=== PATIENT | female | born 1960 | race African-American/Black ===

== ENCOUNTER 2017-04-10 23:50 | Emergency (ER) | payer BC ==
[2017-04-11 00:21] LABS: #Eosinphils 0.2 thou/uL (0.0-0.7); #Lymphocytes 2.5 thou/uL (1.20-3.40); #Monocytes 0.9 thou/uL (0.11-0.59); #Neutrophils 4.2 thou/uL (1.40-6.50); %Basophils 0.5 % (0.0-1.0); %Eosinophils 2.2 % (0.0-10.0); %Lymphocytes 31.8 % (21.0-51.0); %Monocytes 11.4 % (0.0-10.0); %Neutrophils 54.1 % (42.0-75.0); Hemoglobin 12.6 g/dL (12.0-16.0); Mean Corpuscular HGB CONC 32.6 g/dL (32.0-36.0); Mean Corpuscular Hemoglobin 31.5 pg (27.0-31.0); Mean Corpuscular Volume 96.7 fl (81.0-99.0); Mean Platelet Volume 6.8 fL (7.4-10.4); Platelet Count 216 thou/uL (130-400); RBC Distribution Width 12.5 % (11.5-14.5); Red Blood Cell (RBC) Count 3.99 mill/uL (4.20-5.40); White Blood Cell (WBC) Count 7.8 thou/uL (4.8-10.8)
[2017-04-11 00:42] LABS: ALT (SGPT) 10 U/L (8-55); AST (SGOT) 17 U/L (5-34); Albumin 3.3 g/dL (3.5-5.0); Alkaline Phosphatase 52 U/L (40-150); Anion Gap 11 mmol/L (10-20); BUN (Urea Nitrogen) 9 mg/dL (9.8-20.1); Bilirubin, Total 0.3 mg/dL (0.2-1.2); CK (CPK) 131 U/L (29-168); Calc. Creatinine Clearance 0 mL/min (70-130); Calcium 8.5 mg/dL (7.8-10.44); Carbon Dioxide 26 mmol/L (22-29); Chloride 108 mmol/L (98-107); Estimated GFR-MDRD Greater than 90; Globulin 2.6 g/dL (2.4-3.5); Glucose 96 mg/dL (70-105); Potassium 3.5 mmol/L (3.5-5.1); Protein, Total 5.9 g/dL (6.0-8.3); Sodium 141 mmol/L (136-145)
[2017-04-11 00:45] LABS: CKMB 0.9 ng/mL (0-6.6); Troponin I Less than 0.010 ng/mL (< 0.028)
[2017-04-11] MEDS ORDERED: Acetaminophen 500 MG TAB ONE (02:56)
--- NOTE | 2017-04-11 08:38 | RAD ---
PA AND LATERAL VIEWS OF CHEST: Date: 04/10/17 HISTORY: Cough. FINDINGS: The heart size is normal. The lungs are well expanded without focal areas of consolidation, pneumotho rax, or pleural effusions. There are degenerative changes in the spine. IMPRESSION: No radiographic evidence of acute cardiopulmonary process. POS: [facility]
== END 2017-04-11 03:43 | disposition home or self-care (01) ==
LOC: ERS 23:50
DX: B34.9 Viral infection, unspecified (principal); I10 Essential (primary) hypertension; Z87.891 Personal history of nicotine dependence; Z79.899 Other long term (current) drug therapy
CPT/HCPCS: 36415; 71046; 80053; 82553; 83880; 84484; 85025; 93005; 94640; J7620

== ENCOUNTER 2017-10-21 19:15 | Emergency (ER) | payer BC, SELFPAY ==
[2017-10-21 19:53] LABS: #Basophils 0.1 thou/uL (0.0-0.2); #Eosinphils 0.2 thou/uL (0.0-0.7); #Lymphocytes 3.6 thou/uL (1.20-3.40); #Monocytes 0.7 thou/uL (0.11-0.59); #Neutrophils 8.1 thou/uL (1.40-6.50); %Basophils 1.2 % (0.0-1.0); %Eosinophils 1.6 % (0.0-10.0); %Monocytes 5.4 % (0.0-10.0); %Neutrophils 63.8 % (42.0-75.0); Mean Corpuscular HGB CONC 33.2 g/dL (32.0-36.0); Mean Corpuscular Hemoglobin 31.9 pg (27.0-31.0); Mean Platelet Volume 7.3 fL (7.4-10.4); Platelet Count 232 thou/uL (130-400); RBC Distribution Width 12.8 % (11.5-14.5); Red Blood Cell (RBC) Count 4.38 mill/uL (4.20-5.40); White Blood Cell (WBC) Count 12.7 thou/uL (4.8-10.8)
--- NOTE | 2017-10-21 20:14 | RAD ---
PORTABLE AP CHEST X-RAY 10/21/17 HISTORY: Chest pain. COMPARISON: 04/11/17. FINDINGS: The cardiac silhouette and pulmonary vasculature are within normal limits. The lungs remain clear. Th ere has been no interval change from prior study. IMPRESSION: No acute cardiopulmonary process. POS: [facility]
[2017-10-21 20:15] LABS: ALT (SGPT) 15 U/L (8-55); AST (SGOT) 18 U/L (5-34); Albumin 3.8 g/dL (3.5-5.0); Alkaline Phosphatase 60 U/L (40-150); Anion Gap 14 mmol/L (10-20); BUN (Urea Nitrogen) 10 mg/dL (9.8-20.1); Bilirubin, Total 0.3 mg/dL (0.2-1.2); CK (CPK) 136 U/L (29-168); Calc. Creatinine Clearance 0 mL/min (70-130); Calcium 9.2 mg/dL (7.8-10.44); Carbon Dioxide 23 mmol/L (22-29); Chloride 104 mmol/L (98-107); Estimated GFR-MDRD Greater than 90; Globulin 2.7 g/dL (2.4-3.5); Glucose 126 mg/dL (70-105); Potassium 3.4 mmol/L (3.5-5.1); Protein, Total 6.5 g/dL (6.0-8.3); Sodium 138 mmol/L (136-145)
[2017-10-21 20:20] LABS: CKMB 2.2 ng/mL (0-6.6); Troponin I Less than 0.010 ng/mL (< 0.028)
--- NOTE | 2017-10-21 21:12 | RAD ---
THREE VIEWS LEFT SHOULDER 10/21/17 HISTORY: Left sided weakness, left shoulder pain. 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 There is mild left glenohumeral osteoarthropath y. No fracture or dislocation is seen. IMPRESSION: 1. No acute osseous abnormality left shoulder. 2. 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 POS: [facility]
== END 2017-10-21 21:25 | disposition home or self-care (01) ==
LOC: ERS 19:15
DX: M62.838 Other muscle spasm (principal); Z87.891 Personal history of nicotine dependence
CPT/HCPCS: 36415; 71045; 80053; 82553; 84484; 85025; 93005; 96374; J2270

== ENCOUNTER 2018-02-28 08:29 | Emergency (ER) | payer BC, SELFPAY ==
--- NOTE | 2018-02-28 09:59 | RAD ---
TWO VIEWS OF CHEST: DATE: 02/28/2018. COMPARISON: 04/11/2017. HISTORY: Cough, body aches, and congestion. FINDINGS: Lungs are clear. Heart and mediastinal contours are unremarkable. IMPRESSION: No acute findings. POS: [facility]
== END 2018-02-28 10:23 | disposition home or self-care (01) ==
LOC: ERS 08:29
DX: J06.9 Acute upper respiratory infection, unspecified (principal); I10 Essential (primary) hypertension; Z87.891 Personal history of nicotine dependence; Z79.899 Other long term (current) drug therapy
CPT/HCPCS: 71046; 87804; 93005

== ENCOUNTER 2018-05-06 10:11 | Emergency (ER) | payer BC | END 2018-05-06 11:43 | disposition home or self-care (01) | LOC: ERS 10:11 | DX: J20.9 Acute bronchitis, unspecified (principal); I10 Essential (primary) hypertension; Z87.891 Personal history of nicotine dependence | CPT/HCPCS: 87804; 99283 ==

== ENCOUNTER 2018-06-10 10:11 | Emergency (ER) | payer BC | END 2018-06-10 13:34 | disposition left against medical advice (07) | LOC: ERS 10:11 | DX: Z53.21 Procedure and treatment not carried out due to patient leaving prior to being seen by health care provider (principal) ==

== ENCOUNTER 2018-06-10 13:41 | Emergency (ER) | payer BC | END 2018-06-10 15:12 | disposition home or self-care (01) | LOC: ERS 13:41 | DX: J06.9 Acute upper respiratory infection, unspecified (principal); H65.92 Unspecified nonsuppurative otitis media, left ear; I10 Essential (primary) hypertension; Z87.891 Personal history of nicotine dependence; Z79.899 Other long term (current) drug therapy | CPT/HCPCS: 99282 ==

== ENCOUNTER 2018-06-14 14:44 | Emergency (ER) | payer BC | END 2018-06-14 16:00 | disposition home or self-care (01) | LOC: ERS 14:44 | DX: H69.82 Other specified disorders of Eustachian tube, left ear (principal); I10 Essential (primary) hypertension; Z87.891 Personal history of nicotine dependence; Z79.899 Other long term (current) drug therapy | CPT/HCPCS: 99283 ==

== ENCOUNTER 2018-09-09 18:21 | Emergency (ER) | payer BC | END 2018-09-09 19:00 | disposition home or self-care (01) | LOC: ERS 18:21 | DX: K04.7 Periapical abscess without sinus (principal); K02.9 Dental caries, unspecified; I10 Essential (primary) hypertension; Z87.891 Personal history of nicotine dependence | CPT/HCPCS: 99282 ==

== ENCOUNTER 2018-11-02 09:13 | Emergency (ER) | payer SELFPAY ==
[2018-11-02 09:46] LABS: #Basophils 0.1 thou/uL (0.0-0.2); #Eosinphils 0.3 thou/uL (0.0-0.7); #Lymphocytes 2.3 thou/uL (1.20-3.40); #Monocytes 0.6 thou/uL (0.11-0.59); #Neutrophils 4.9 thou/uL (1.40-6.50); %Basophils 1.4 % (0.0-1.0); %Eosinophils 3.1 % (0.0-10.0); %Lymphocytes 28.3 % (21.0-51.0); %Monocytes 6.9 % (0.0-10.0); %Neutrophils 60.3 % (42.0-75.0); Hemoglobin 13.4 g/dL (12.0-16.0); Mean Corpuscular HGB CONC 33.6 g/dL (32.0-36.0); Mean Corpuscular Hemoglobin 32.6 pg (27.0-31.0); Mean Corpuscular Volume 96.9 fL (78.0-98.0); Mean Platelet Volume 7.4 fL (7.4-10.4); Platelet Count 215 thou/uL (130-400); RBC Distribution Width 13.1 % (11.5-14.5); Red Blood Cell (RBC) Count 4.12 mill/uL (4.20-5.40); White Blood Cell (WBC) Count 8.1 thou/uL (4.8-10.8)
[2018-11-02 10:12] LABS: ALT (SGPT) 15 U/L (8-55); AST (SGOT) 18 U/L (5-34); Albumin 3.4 g/dL (3.5-5.0); Alkaline Phosphatase 54 U/L (40-150); Anion Gap 10 mmol/L (10-20); BUN (Urea Nitrogen) 12 mg/dL (9.8-20.1); Bilirubin, Total 0.5 mg/dL (0.2-1.2); CK (CPK) 98 U/L (29-168); Calc. Creatinine Clearance 0 mL/min (70-130); Calcium 8.7 mg/dL (7.8-10.44); Carbon Dioxide 25 mmol/L (22-29); Chloride 113 mmol/L (98-107); Estimated GFR-MDRD Greater than 90; Globulin 1.7 g/dL (2.4-3.5); Glucose 83 mg/dL (70-105); Potassium 3.9 mmol/L (3.5-5.1); Protein, Total 5.1 g/dL (6.0-8.3); Sodium 144 mmol/L (136-145)
--- NOTE | 2018-11-02 10:28 | RAD ---
2 VIEW CHEST: Date: 11/02/18 INDICATION: Hypertension. Headache. Dizziness. COMPARISON: 02/28/18. FINDINGS: There is linear stranding in the left lung base, appears to represent subsegmental atelectasis. No in filtrate or vascular congestion. Heart and mediastinum unremarkable. Osseous structures unremarkable with mild degenerative spine change, which appear stable. IMPRESSION: Linear stranding/atelectasis in the left lung base. No acute process. POS: [facility]
--- NOTE | 2018-11-06 13:28 | EKG ---
Test Reason : Blood Pressure : / mmHG Vent. Rate : 060 BPM Atrial Rate : 060 BPM P-R Int : 174 ms QRS Dur : 076 ms QT Int : 404 ms P-R-T Axes : 039 -26 -03 degrees QTc Int : 404 ms Normal sinus rhythm Normal ECG Confirmed by FINESSE SILVERIO, BRIDGET ([id number]), social media editor CASA MITCHELL ([id number] on 11/06/2018 1:28:29 PM Referred By: Confirmed By:BRIDGET KILPATRICK MD
== END 2018-11-02 12:23 | disposition home or self-care (01) ==
LOC: ERS 09:13
DX: I11.0 Hypertensive heart disease with heart failure (principal); I50.9 Heart failure, unspecified; R60.0 Localized edema; M10.9 Gout, unspecified; Z87.891 Personal history of nicotine dependence
CPT/HCPCS: 36415; 71046; 80053; 82550; 83880; 84484; 85025; 93005

== ENCOUNTER 2018-11-24 10:28 | Emergency (ER) | payer SELFPAY ==
[2018-11-24 10:57] LABS: #Eosinphils 0.2 thou/uL (0.0-0.7); #Lymphocytes 2.5 thou/uL (1.20-3.40); #Monocytes 0.7 thou/uL (0.11-0.59); #Neutrophils 6.8 thou/uL (1.40-6.50); %Basophils 0.4 % (0.0-1.0); %Eosinophils 2.3 % (0.0-10.0); %Lymphocytes 24.6 % (21.0-51.0); %Monocytes 7.1 % (0.0-10.0); %Neutrophils 65.6 % (42.0-75.0); Hemoglobin 13.7 g/dL (12.0-16.0); Mean Corpuscular HGB CONC 32.7 g/dL (32.0-36.0); Mean Corpuscular Hemoglobin 32.3 pg (27.0-31.0); Mean Corpuscular Volume 98.7 fL (78.0-98.0); Mean Platelet Volume 7.2 fL (7.4-10.4); Platelet Count 216 thou/uL (130-400); RBC Distribution Width 13.1 % (11.5-14.5); Red Blood Cell (RBC) Count 4.25 mill/uL (4.20-5.40); White Blood Cell (WBC) Count 10.3 thou/uL (4.8-10.8)
--- NOTE | 2018-11-24 11:04 | RAD ---
Exam: Chest one view HISTORY:Hypertension Comparison: 02 November 2018 FINDINGS: Lungs: No masses or consolidation. Cardiac silhouette: Normal size Pulmonary vessels: Normal Pleural Spaces: Clear Pneumothorax: None Osseous abnormalities: None of acuity. IMPRESSION: No focal consolidation.
[2018-11-24 11:21] LABS: ALT (SGPT) 12 U/L (8-55); AST (SGOT) 14 U/L (5-34); Albumin 3.1 g/dL (3.5-5.0); Alkaline Phosphatase 75 U/L (40-110); Anion Gap 7 mmol/L (10-20); BUN (Urea Nitrogen) 13 mg/dL (9.8-20.1); Bilirubin, Total Less than 0.2 mg/dL (0.2-1.2); CK (CPK) 64 U/L (29-168); Calc. Creatinine Clearance 0 mL/min (70-130); Calcium 8.2 mg/dL (7.8-10.44); Carbon Dioxide 25 mmol/L (22-29); Chloride 110 mmol/L (98-107); Estimated GFR-MDRD Greater than 90; Globulin 2.1 g/dL (2.4-3.5); Glucose 102 mg/dL (70-105); Protein, Total 5.2 g/dL (6.0-8.3); Sodium 138 mmol/L (136-145)
[2018-11-24 13:48] LABS: Troponin I Less than 0.010 ng/mL (< 0.028)
[2018-11-24] MEDS ORDERED: Hydrochlorothiazide 25 MG TAB PO SCH (14:00)
--- NOTE | 2018-11-27 23:23 | EKG ---
Test Reason : Blood Pressure : / mmHG Vent. Rate : 058 BPM Atrial Rate : 058 BPM P-R Int : 186 ms QRS Dur : 074 ms QT Int : 412 ms P-R-T Axes : 042 -20 015 degrees QTc Int : 404 ms Sinus bradycardia Otherwise normal ECG Confirmed by CELY OLIVEIRA DO ([id number]), video tape editor VIVIAN KING ([id number] on 11/27/2018 11:23:08 PM Referred By: Confirmed By:CELY OLIVEIRA DO
--- NOTE | 2018-11-27 23:23 | EKG ---
Test Reason : Blood Pressure : / mmHG Vent. Rate : 061 BPM Atrial Rate : 061 BPM P-R Int : 172 ms QRS Dur : 084 ms QT Int : 424 ms P-R-T Axes : 022 082 052 degrees QTc Int : 426 ms Normal sinus rhythm Normal ECG Confirmed by CELY OLIVEIRA DO ([id number]), film or videotape editor VIVIAN KING ([id number] on 11/27/2018 11:23:05 PM Referred By: Confirmed By:CELY OLIVEIRA DO
== END 2018-11-24 14:34 | disposition home or self-care (01) ==
LOC: ERS 10:28
DX: R07.9 Chest pain, unspecified (principal); M79.89 Other specified soft tissue disorders; I11.0 Hypertensive heart disease with heart failure; I50.9 Heart failure, unspecified; M10.9 Gout, unspecified; Z87.891 Personal history of nicotine dependence; Z79.82 Long term (current) use of aspirin
CPT/HCPCS: 36415; 71045; 80053; 82550; 83880; 84484; 85025; 85379; 93005